=== PATIENT | female | born 1995 | race Two or more races ===

== ENCOUNTER 2021-01-31 11:05 | Outpatient (CLI) | payer OTHER | END 2021-01-31 12:05 | disposition home or self-care (01) | LOC: PPH VACUNA 11:05 | PROVIDERS: ATTEND Emergency Medicine Pediatric Emergency Medicine | DX: Z23 Encounter for immunization (principal) ==

== ENCOUNTER 2022-01-09 08:00 | Outpatient (CLI) | payer OTHER | END 2022-01-09 08:05 | disposition home or self-care (01) | LOC: PPH VACUNA 08:00 | PROVIDERS: ATTEND Emergency Medicine Pediatric Emergency Medicine | DX: Z23 Encounter for immunization (principal) ==

== ENCOUNTER 2022-07-19 18:40 | Emergency (ER) | payer OTHER ==
[~2022-07-19] VITALS: Ht 157.5 cm; Wt 64.9 kg
[2022-07-19] MEDS ORDERED: ZOFRAN8 MG PO (20:55)
[2022-07-19] MEDS ORDERED: PEPCID AC20 MG PO (20:55)
== END 2022-07-19 21:27 | disposition home or self-care (01) ==
LOC: ER 18:40
DX: K52.9 Noninfective gastroenteritis and colitis, unspecified (principal)

== ENCOUNTER 2023-01-14 10:00 | Outpatient (CLI) | payer OTHER ==
[~2023-01-14 10:00] MED LIST: PEPCID AC20 MG PO; ZOFRAN8 MG PO
== END 2023-01-14 10:15 | disposition home or self-care (01) ==
LOC: PPH VACUNA 10:00
PROVIDERS: ATTEND Emergency Medicine Pediatric Emergency Medicine
DX: Z23 Encounter for immunization (principal)

== ENCOUNTER 2024-03-24 15:00 | Outpatient (CLI) | payer OTHER | END 2024-03-24 15:10 | disposition home or self-care (01) | LOC: PPH VACUNA 15:00 | PROVIDERS: ATTEND Emergency Medicine Pediatric Emergency Medicine | DX: Z23 Encounter for immunization (principal) ==